=== PATIENT | female | born 1980 | race Caucasian/White ===

== ENCOUNTER 2021-02-09 20:25 | Emergency (ER) | payer BC ==
[~2021-02-09] VITALS: Ht 154.9 cm; Wt 102.5 kg
[2021-02-09 20:41] VITALS: BP 137/68
[2021-02-09] MEDS ORDERED: diazePAM 5 MG TAB ONE (23:25)
[2021-02-09] MEDS: diazePAM 5 MG TAB PO ONE (23:30)
[2021-02-09] MEDS ORDERED: METH750T5 PO (23:36)
[2021-02-09 23:45] VITALS: BP 140/89
== END 2021-02-09 23:45 | disposition home or self-care (01) ==
LOC: MED 20:25
DX: M54.5 Low back pain (principal); M54.6 Pain in thoracic spine; Z87.81 Personal history of (healed) traumatic fracture; V98.8XXA Other specified transport accidents, initial encounter; Y93.89 Activity, other specified; Y92.89 Other specified places as the place of occurrence of the external cause; Y99.8 Other external cause status
CPT/HCPCS: 72072; 72100; 99284